=== PATIENT | female | born 1995 | race Caucasian/White ===

== ENCOUNTER 2017-02-12 02:03 | Emergency (ER) | payer MEDICAID ==
[~2017-02-12] VITALS: Ht 157.5 cm; Wt 85.7 kg
[2017-02-12 02:08] VITALS: BP 145/78
--- NOTE | 2017-02-12 02:12 | NUR ---
PATIENT AMBULATED TO ER BED 4.
--- NOTE | 2017-02-12 02:13 | NUR ---
22Y/F PATIENT PRESENTS TO ED WITH C/O BOTH EARS PAIN X 1 DAY . PT STATES PAIN STARTED THIS MORNING, NO FEVER . DENIES N/V/D. HX. HTN; SKIN IS PINK/WARM/DRY; AAOX4 WITH EVEN AND STEADY GAIT; LUNGS CLEAR BL; HR EVEN AND REGULAR; PT DENIES ANY FEVER, CP, SOB, OR COUGH AT THIS TIME; PATIENT STATES PAIN OF 8/10 AT THIS TIME; VSS; PATIENT POSITIONED FOR COMFORT; HOB ELEVATED; BEDRAILS UP X2; BED DOWN. ER MD MADE AWARE OF PT STATUS.
--- NOTE | 2017-02-12 02:30 | NUR ---
Patient being evaluated by at bedside.
[2017-02-12 03:00] VITALS: BP 135/81
--- NOTE | 2017-02-12 03:00 | NUR ---
Patient discharged with v/s stable. Written and verbal after care instructions given and explained. Patient alert, oriented and verbalized understanding of instructions. Ambulatory with steady gait. All questions addressed prior to discharge. ID band removed. Patient advised to follow up with PMD. Rx of AUGMENTIN 875 MG given. Patient educated on indication of medication including possible reaction and side effects. Opportunity to ask questions provided and answered.
== END 2017-02-12 03:00 | disposition home or self-care (01) ==
LOC: MED 02:03
DX: H66.92 Otitis media, unspecified, left ear (principal)
CPT/HCPCS: 99283

== ENCOUNTER 2017-08-08 03:25 | Emergency (ER) | payer MEDICAID, OTHER ==
[~2017-08-08] VITALS: Ht 160 cm; Wt 81.6 kg
[2017-08-08 03:34] VITALS: BP 138/84
[2017-08-08] MEDS ORDERED: KETOROLAC 30 MG/ML VIAL IM ONE (03:55)
[2017-08-08 04:55] VITALS: BP 138/84
== END 2017-08-08 04:55 | disposition home or self-care (01) ==
LOC: MED 03:25
DX: M54.5 Low back pain (principal)
CPT/HCPCS: 72100; 81025; 96372; 99284; J1885

== ENCOUNTER 2017-11-23 18:18 | Emergency (ER) | payer OTHER ==
[~2017-11-23] VITALS: Ht 160 cm; Wt 91.2 kg
[2017-11-23 18:27] VITALS: BP 126/75
--- NOTE | 2017-11-23 18:30 | NUR ---
6 WKS PT C/O VAGINAL BLEEDING WITH CRAMPING; SEEN ON 11/12/2017 FOR THE SAME S/S; LMP 10/07/2017, . DENIES N/V/D; SKIN IS PINK/WARM/DRY; AAOX4 WITH EVEN AND STEADY GAIT; LUNGS CLEAR BL; HR EVEN AND REGULAR; PT DENIES ANY FEVER, CP, SOB, OR COUGH AT THIS TIME; PATIENT STATES PAIN OF 0/10 AT THIS TIME; VSS; PATIENT POSITIONED FOR COMFORT; HOB ELEVATED; BEDRAILS UP X2; BED DOWN. ER MD MADE AWARE OF PT STATUS.
[2017-11-23 18:54] LABS: BASOPHILS # (AUTO) 0.3 K/uL (0.00-0.22); BASOPHILS % (AUTO) 2.4 % (0.0-2.0); EOSINOPHILS # (AUTO) 0.5 K/uL (0-0.4); EOSINOPHILS % (AUTO) 3.5 % (0.0-4.0); HEMATOCRIT 34.5 % (36-48); HEMOGLOBIN 11.3 g/dL (12.0-16.0); LYMPHOCYTES % (AUTO) 29.4 % (20.5-51.1); MEAN CORPUSCULAR HEMOGLOBIN 26 pg (27-31); MEAN CORPUSCULAR HGB CONC 33 g/dL (33-37); MEAN CORPUSCULAR VOLUME 80.6 fL (80-94); MONOCYTES # (AUTO) 1.3 K/uL (0.8-1.0); MONOCYTES % (AUTO) 9.3 % (1.7-9.3); NEUTROPHILS # (AUTO) 7.5 K/uL (1.8-7.7); NEUTROPHILS % (AUTO) 55.4 % (42.2-75.2); PLATELET COUNT (AUTO) 270 K/uL (140-450); RED BLOOD CELL COUNT(AUTO) 4.28 MIL/uL (4.20-5.40); WHITE BLOOD COUNT (AUTO) 13.6 K/uL (4.8-10.8)
[2017-11-23 19:05] LABS: APPEARANCE,URINE CLEAR (CLEAR); BILIRUBIN,URINE NEGATIVE (NEGATIVE); BLOOD, URINE 1+ (NEGATIVE); COLOR,URINE YELLOW (YELLOW); LEUKOCYTE ESTERASE ,URINE TRACE (NEGATIVE); NITRITE, URINE NEGATIVE (NEGATIVE); UGLUCOSE NEGATIVE (NEGATIVE)
--- NOTE | 2017-11-23 19:06 | NUR ---
REVIEVED REPORT FROM MATILDE LOVE
[2017-11-23 19:07] LABS: RBC,URINE 3-10 (FEW) /HPF (0-5)
[2017-11-23 19:08] LABS: WBC,URINE 16-25 (MOD) /HPF (0-5)
--- NOTE | 2017-11-23 19:10 | NUR ---
REPORT GIVEN TO GERARD BUCHANAN
--- NOTE | 2017-11-23 19:35 | NUR ---
PT RETRUNED FROM US. PT DOES STATE INTERMITTENT CRAMPING BUT NO PAIN AT THIS TIME.
[2017-11-23 20:39] VITALS: BP 161/62
== END 2017-11-23 20:39 | disposition home or self-care (01) ==
LOC: MED 18:18
DX: O23.41 Unspecified infection of urinary tract in pregnancy, first trimester (principal); Z3A.01 Less than 8 weeks gestation of pregnancy
CPT/HCPCS: 36415; 76817; 81001; 84702; 85025; 99285

== ENCOUNTER 2018-01-06 02:53 | Emergency (ER) | payer OTHER ==
[~2018-01-06] VITALS: Ht 154.9 cm; Wt 88.0 kg
[2018-01-06 02:59] VITALS: BP 132/82
--- NOTE | 2018-01-06 03:05 | NUR ---
22/F CAME IN W C/O 03/13 LOWER BACK PAIN AND ABDOMINAL PAIN X 30 MINS S/P HELPING A RESIDENT AT A HALFWAY. DENIES ANY VAGINAL BLEEDING/DISCHARGE. A1, IUP 11 WKS. DENIES PMH/RX/OTC. DENIES N/V/D; SKIN IS PINK/WARM/DRY; AAOX4 WITH EVEN AND STEADY GAIT; LUNGS CLEAR BL; HR EVEN AND REGULAR; PT DENIES ANY FEVER, CP, SOB, OR COUGH AT THIS TIME; VSS; PATIENT POSITIONED FOR COMFORT; HOB ELEVATED; BEDRAILS UP X2; BED DOWN. ER MD MADE AWARE OF PT STATUS.
--- NOTE | 2018-01-06 03:05 | NUR ---
PT.AMBULATED TO ER BED 2
[2018-01-06 03:27] LABS: APPEARANCE,URINE HAZY (CLEAR); BILIRUBIN,URINE NEGATIVE (NEGATIVE); BLOOD, URINE NEGATIVE (NEGATIVE); COLOR,URINE YELLOW (YELLOW); LEUKOCYTE ESTERASE ,URINE NEGATIVE (NEGATIVE); NITRITE, URINE NEGATIVE (NEGATIVE); PH,URINE 6.5 (5.0-9.0); UGLUCOSE NEGATIVE (NEGATIVE)
[2018-01-06 03:36] LABS: RBC,URINE 0-5 (RARE) /HPF (0-5)
[2018-01-06] MEDS ORDERED: ONDANSETRON 4 MG ODT PO ONE (03:45)
[2018-01-06] MEDS ORDERED: ONDANSETRON 4 MG ODT ONE (03:49)
--- NOTE | 2018-01-06 04:30 | NUR ---
Ultrasound at bedside.
--- NOTE | 2018-01-06 05:30 | NUR ---
Patient appears to be resting comfortably in bed. Vital Signs within normal limits. Respirations even and unlabored.
--- NOTE | 2018-01-06 06:30 | NUR ---
Patient appears to be resting comfortably in bed. Vital Signs within normal limits. Respirations even and unlabored. informed regarding US results status
[2018-01-06 06:35] VITALS: BP 128/72
== END 2018-01-06 06:35 | disposition home or self-care (01) ==
LOC: MED 02:53
DX: O9A.211 Injury, poisoning and certain other consequences of external causes complicating pregnancy, first trimester (principal); S39.012A Strain of muscle, fascia and tendon of lower back, initial encounter; S39.011A Strain of muscle, fascia and tendon of abdomen, initial encounter; Z3A.11 11 weeks gestation of pregnancy; X50.9XXA Other and unspecified overexertion or strenuous movements or postures, initial encounter; Y93.89 Activity, other specified; Y92.89 Other specified places as the place of occurrence of the external cause; Y99.8 Other external cause status
CPT/HCPCS: 76801; 81001; 81025; 87086; 99285; Q0092; S0119

== ENCOUNTER 2018-02-23 11:30 | Observation (INO) | payer OTHER ==
[~2018-02-23] VITALS: Ht 154.9 cm; Wt 90.7 kg
[2018-02-23] MEDS ORDERED: PREN-380 PO (12:05)
[2018-02-23] MEDS ORDERED: FERR325E14 PO (12:05)
[2018-02-23] MEDS ORDERED: ONDA4TAB PO (12:05)
[2018-02-23] MEDS ORDERED: VITA1TAB44 PO (12:05)
[2018-02-23 12:49] VITALS: BP 110/55
== END 2018-02-23 14:45 | disposition home or self-care (01) ==
LOC: MLD 11:30
PROVIDERS: ADMIT Obstetrics & Gynecology; ATTEND Obstetrics & Gynecology
DX: O26.859 Spotting complicating pregnancy, unspecified trimester (principal); Z3A.00 Weeks of gestation of pregnancy not specified
CPT/HCPCS: 76805; G0378; Q0092